=== PATIENT | female | born 1960 | race Caucasian/White ===

== ENCOUNTER → 2016-04-03 | Outpatient (CLI) | payer OTHER ==
--- NOTE | 2016-04-03 11:23 | US ---
Ultrasound Abdomen Retroperitoneal, Limited History: I 71.2, thoracic aneurysm, are 91.8, I 10, hypertension, K 21.9, gastroesophageal reflux. Comparison: CT abdomen March 2013 Technique: Transabdominal longitudinal and transverse ultrasound imaging of the abdominal aorta. Findings: Proximal aorta measures 2 cm (AP) x 2.5 cm (transverse) Mid aorta measures 1.8 cm (AP) x 2 cm (transverse) Distal aorta measures 1.7 cm (AP) x 1.7 cm (transverse) Right common iliac artery measures 1.1 cm (AP) x 0.9 cm (transverse) Left common iliac artery measures 1.1 cm (AP) x 1.1 cm (transverse) Mild atherosclerotic abdominal aorta without aneurysm. Impression: Mild atherosclerotic abdominal aorta without aneurysm.
== END ==
LOC: FIMAGING 09:16
PROVIDERS: ATTEND Internal Medicine
DX: I70.0 Atherosclerosis of aorta (principal); I10 Essential (primary) hypertension; K21.9 Gastro-esophageal reflux disease without esophagitis

== ENCOUNTER → 2016-08-19 | Outpatient (CLI) | payer OTHER | LOC: FIMAGING 08:35 | PROVIDERS: ATTEND Thoracic Surgery (Cardiothoracic Vascular Surgery) | DX: R91.1 Solitary pulmonary nodule (principal); I71.9 Aortic aneurysm of unspecified site, without rupture ==

== ENCOUNTER 2017-01-09 09:35 | Emergency (ER) | payer OTHER ==
[2017-01-09 09:40] VITALS: BP 121/96; PULSE 61; RESP 18; TEMP 97.7; O2SAT 93
[2017-01-09] MEDS ORDERED: OXYCODONE/APAP 5/325 TAB PO ONE ×2 (10:03)
--- NOTE | 2017-01-09 10:07 | EDPHY ---
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 This morning she was carrying her 40 lb grandson, rolled her foot and felt new pain to the calcaneus. She is unable to bear weight secondary to pain. No ankle pain. No proximal tibia or fibula pain. No fall from height. No paresthesia. Pain is improved with elevation worse with weight-bearing and dependent position. PHYSICAL EXAM (Prior to examination, patient consented to physical exam, hands were washed and my usual and customary physical exam procedures followed) 1) GENERAL: Well-developed, well-nourished, alert and oriented. Appears uncomfortable. 2) HEAD: Normocephalic 3) HEENT: Pupils equal, round, reactive to light bilaterally. 4) LUNGS: Breathing comfortably. 5) MUSCULOSKELETAL: Reproducible pain to the plantar calcaneus region with hyper dorsiflexion of the foot and toes. No tenderness to palpation of the foot or calcaneus. No crepitus. No discoloration. proximal tibia and fibula nontender .5th MT nontender . Ankle proximal tibia fibula nontender. negative Lees test, compartments soft 6) SKIN: normal coloration. 7) VASCULAR: DP,PT pulses and cap refill present and brisk DIFFERENTIAL DIAGNOSIS: in no particular order including but not limited to fracture, sprain, compartment syndrome Patient already has her own home crutches. Recommend she use these. Procedure: Splint A postoperative shoe splint was applied by ER life science technician. After application of the splint I returned and re-examined the patient. The splint was adequately immobilizing the joint and distal to the splint the patient's circulation and sensation were intact. Patient shows no signs of compartment syndrome. Was given orthopedic precautions. Smoking Status: Former smoker Constitutional: Initial Vital Signs Temperature (C) 36.5 C 01/09/17 09:36 Heart Rate 61 01/09/17 09:36 Respiratory Rate 18 01/09/17 09:36 Blood Pressure 121/96 H 01/09/17 09:36 O2 Sat (%) 93 01/09/17 09:36 O2 Delivery Mode Room Air Allergies/Adverse Reactions: No Known Allergies Allergy (Verified 01/09/17 09:36) Home Medications: Medication Instructions Recorded Hydrocodone/APAP 5/325 [[place] 1 tab PO Q6 PRN #15 tab 01/09/17 5/325 (RX)] Lipitor 01/09/17 Metoprolol Succinate 01/09/17 MDM/Departure - [facility] ED Course/Re-evaluation: Serial exams from the patient. Doubt compartment syndrome. Doubt fracture. Doubt occult fracture not ruled out. I do not think that emergent MRI indicated. She has an appoint with Dr. Geovani Fan on Thursday (today is Thursday ). Recommend she keep this appointment. Recommend elevation, cold packs, analgesia as indicated with prescription. Usual and customary orthopedic precautions and instructions provided. She feels comfortable with this plan. Care of patient under supervision of secondary supervising physician Dr Wilson . - Depart Disposition: Home, Routine, Self-Care Clinical Impression: Left calcaneus pain Condition: Good Instructions: Foot Sprain (ED) Additional Instructions: Return to the ER immediately if you experience discoloration, have worsening pain, numbness, tingling, or any other symptoms that concern you. If you received x-rays in the emergency department today, be advised, that ligamentous , tendon, muscular, and other non-bony injury cannot be fully ruled out. Try to keep your affected extremity elevated above the level of your chest, and keep cold packs on the affected area, for the next 48 hours. Prescriptions: Hydrocodone/APAP 5/325 [[place] 5/325 (RX)] 1 tab PO Q6 PRN #15 tab PRN Reason: Pain, Severe Referrals: Geovani Fan MD [Medical Doctor] - 01/12/17
--- NOTE | 2017-01-09 10:07 | EDPHY ---
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 This morning she was carrying her 40 lb grandson, rolled her foot and felt new pain to the calcaneus. She is unable to bear weight secondary to pain. No ankle pain. No proximal tibia or fibula pain. No fall from height. No paresthesia. Pain is improved with elevation worse with weight-bearing and dependent position. PHYSICAL EXAM (Prior to examination, patient consented to physical exam, hands were washed and my usual and customary physical exam procedures followed) 1) GENERAL: Well-developed, well-nourished, alert and oriented. Appears uncomfortable. 2) HEAD: Normocephalic 3) HEENT: Pupils equal, round, reactive to light bilaterally. 4) LUNGS: Breathing comfortably. 5) MUSCULOSKELETAL: Reproducible pain to the plantar calcaneus region with hyper dorsiflexion of the foot and toes. No tenderness to palpation of the foot or calcaneus. No crepitus. No discoloration. proximal tibia and fibula nontender .5th MT nontender . Ankle proximal tibia fibula nontender. negative Lees test, compartments soft 6) SKIN: normal coloration. 7) VASCULAR: DP,PT pulses and cap refill present and brisk DIFFERENTIAL DIAGNOSIS: in no particular order including but not limited to fracture, sprain, compartment syndrome Patient already has her own home crutches. Recommend she use these. Procedure: Splint A postoperative shoe splint was applied by ER animal husbandry technician. After application of the splint I returned and re-examined the patient. The splint was adequately immobilizing the joint and distal to the splint the patient's circulation and sensation were intact. Patient shows no signs of compartment syndrome. Was given orthopedic precautions. Smoking Status: Former smoker Constitutional: Initial Vital Signs Temperature (C) 36.5 C 01/09/17 09:36 Heart Rate 61 01/09/17 09:36 Respiratory Rate 18 01/09/17 09:36 Blood Pressure 121/96 H 01/09/17 09:36 O2 Sat (%) 93 01/09/17 09:36 O2 Delivery Mode Room Air Allergies/Adverse Reactions: No Known Allergies Allergy (Verified 01/09/17 09:36) Home Medications: Medication Instructions Recorded Hydrocodone/APAP 5/325 [[place] 1 tab PO Q6 PRN #15 tab 01/09/17 5/325 (RX)] Lipitor 01/09/17 Metoprolol Succinate 01/09/17 MDM/Departure - [facility] ED Course/Re-evaluation: Serial exams from the patient. Doubt compartment syndrome. Doubt fracture. Doubt occult fracture not ruled out. I do not think that emergent MRI indicated. She has an appoint with Dr. Geovani Fan on Thursday (today is Thursday ). Recommend she keep this appointment. Recommend elevation, cold packs, analgesia as indicated with prescription. Usual and customary orthopedic precautions and instructions provided. She feels comfortable with this plan. Care of patient under supervision of secondary supervising physician Dr Wilson . - Depart Disposition: Home, Routine, Self-Care Clinical Impression: Left calcaneus pain Condition: Good Instructions: Foot Sprain (ED) Additional Instructions: Return to the ER immediately if you experience discoloration, have worsening pain, numbness, tingling, or any other symptoms that concern you. If you received x-rays in the emergency department today, be advised, that ligamentous , tendon, muscular, and other non-bony injury cannot be fully ruled out. Try to keep your affected extremity elevated above the level of your chest, and keep cold packs on the affected area, for the next 48 hours. Prescriptions: Hydrocodone/APAP 5/325 [[place] 5/325 (RX)] 1 tab PO Q6 PRN #15 tab PRN Reason: Pain, Severe Referrals: Geovani Fan MD [Medical Doctor] - 01/12/17
--- NOTE | 2017-01-09 10:07 | EDPHY ---
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 yesterday, had negative x- rays, given an Pedro wrap discharged home. This morning she was carrying her 40 lb grandson, rolled her foot and felt new pain to the calcaneus. She is unable to bear weight secondary to pain. No ankle pain. No proximal tibia or fibula pain. No fall from height. No paresthesia. Pain is improved with elevation worse with weight-bearing and dependent position. PHYSICAL EXAM (Prior to examination, patient consented to physical exam, hands were washed and my usual and customary physical exam procedures followed) 1) GENERAL: Well-developed, well-nourished, alert and oriented. Appears uncomfortable. 2) HEAD: Normocephalic 3) HEENT: Pupils equal, round, reactive to light bilaterally. 4) LUNGS: Breathing comfortably. 5) MUSCULOSKELETAL: Reproducible pain to the plantar calcaneus region with hyper dorsiflexion of the foot and toes. No tenderness to palpation of the foot or calcaneus. No crepitus. No discoloration. proximal tibia and fibula nontender .5th MT nontender . Ankle proximal tibia fibula nontender. negative Lees test, compartments soft 6) SKIN: normal coloration. 7) VASCULAR: DP,PT pulses and cap refill present and brisk DIFFERENTIAL DIAGNOSIS: in no particular order including but not limited to fracture, sprain, compartment syndrome Patient already has her own home crutches. Recommend she use these. Procedure: Splint A postoperative shoe splint was applied by ER histology technician. After application of the splint I returned and re-examined the patient. The splint was adequately immobilizing the joint and distal to the splint the patient's circulation and sensation were intact. Patient shows no signs of compartment syndrome. Was given orthopedic precautions. Smoking Status: Former smoker Constitutional: Initial Vital Signs Temperature (C) 36.5 C 01/09/17 09:36 Heart Rate 61 01/09/17 09:36 Respiratory Rate 18 01/09/17 09:36 Blood Pressure 121/96 H 01/09/17 09:36 O2 Sat (%) 93 01/09/17 09:36 O2 Delivery Mode Room Air Allergies/Adverse Reactions: No Known Allergies Allergy (Verified 01/09/17 09:36) Home Medications: Medication Instructions Recorded Hydrocodone/APAP 5/325 [[place] 1 tab PO Q6 PRN #15 tab 01/09/17 5/325 (RX)] Lipitor 01/09/17 Metoprolol Succinate 01/09/17 MDM/Departure - [facility] ED Course/Re-evaluation: Serial exams from the patient. Doubt compartment syndrome. Doubt fracture. Doubt occult fracture not ruled out. I do not think that emergent MRI indicated. She has an appoint with Dr. Geovani Fan on Thursday (today is Thursday ). Recommend she keep this appointment. Recommend elevation, cold packs, analgesia as indicated with prescription. Usual and customary orthopedic precautions and instructions provided. She feels comfortable with this plan. Care of patient under supervision of secondary supervising physician Dr Wilson . - Depart Disposition: Home, Routine, Self-Care Clinical Impression: Left calcaneus pain Condition: Good Instructions: Foot Sprain (ED) Additional Instructions: Return to the ER immediately if you experience discoloration, have worsening pain, numbness, tingling, or any other symptoms that concern you. If you received x-rays in the emergency department today, be advised, that ligamentous , tendon, muscular, and other non-bony injury cannot be fully ruled out. Try to keep your affected extremity elevated above the level of your chest, and keep cold packs on the affected area, for the next 48 hours. Prescriptions: Hydrocodone/APAP 5/325 [[place] 5/325 (RX)] 1 tab PO Q6 PRN #15 tab PRN Reason: Pain, Severe Referrals: Geovani Fan MD [Medical Doctor] - 01/12/17
== END 2017-01-09 11:21 | disposition home or self-care (01) ==
DX: M79.672 Pain in left foot (principal); Z87.891 Personal history of nicotine dependence
CPT/HCPCS: L3260

== ENCOUNTER → 2017-09-21 | Outpatient (CLI) | payer OTHER | LOC: FIMAGING 12:21 | PROVIDERS: ATTEND Internal Medicine | DX: R91.8 Other nonspecific abnormal finding of lung field (principal) ==